=== PATIENT | male | born 1985 | race Two or more races ===

== ENCOUNTER 2018-05-09 19:05 | Emergency (ER) | payer OTHER ==
[~2018-05-09] VITALS: Ht 180.3 cm; Wt 66.0 kg
[2018-05-09] MEDS ORDERED: SODIUM CHLORIDE 0.9% 1,000 ML IV ONE (21:15)
[2018-05-09] MEDS ORDERED: KETOROLAC 30MG/ML VIAL IV ONE (21:15)
[2018-05-09] MEDS ORDERED: METOCLOPRAMIDE HCL 10MG/2ML VIAL IV ONE (21:15)
[2018-05-10 00:15] VITALS: BP 106/56
== END 2018-05-10 00:15 | disposition home or self-care (01) ==
LOC: ER 23:21
DX: R51 Headache (principal); J45.909 Unspecified asthma, uncomplicated; F17.200 Nicotine dependence, unspecified, uncomplicated; Z88.0 Allergy status to penicillin
CPT/HCPCS: 96361; 96374; 96375; 99284; J1885; J2765; J7030; Z7610

== ENCOUNTER 2022-07-26 17:01 | Emergency (ER) | payer MEDICAID, OTHER ==
[~2022-07-26] VITALS: Ht 188 cm; Wt 66.0 kg
[2022-07-26 17:42] VITALS: BP 140/74
[2022-07-26 21:27] LABS: BASOPHILS % 0.2 % (0.0-2.0); HEMATOCRIT. 46.4 % (42.0-52.0); HEMOGLOBIN. 15.5 g/dL (14.0-18.0); LYMPHOCYTES % 52.5 % (20.0-50.0); MEAN CORPUSCULAR HEMOGLOBIN 29.1 pg (28.0-32.0); MEAN PLATELET VOLUME 7.9 fl (7.4-10.4); MONOCYTES % 4.1 % (2.0-8.0); NEUTROPHILS % 38.2 % (40.0-76.0); PLATELET 274 x1000/uL (130-400); RED BLOOD CELL COUNT 5.34 mill/uL (4.7-6.1); RED CELL DISTRIBUTION WIDTH 14.4 % (11.6-14.6)
[2022-07-26 21:35] LABS: CHLORIDE 102 mEq/L (98-107)
[2022-07-26] MEDS ORDERED: METH-653 MT (23:06)
[2022-07-26] MEDS ORDERED: IBUP-2029 MT (23:06)
== END 2022-07-26 23:20 | disposition home or self-care (01) ==
LOC: ER 17:01
DX: R10.11 Right upper quadrant pain (principal); N28.1 Cyst of kidney, acquired; J45.909 Unspecified asthma, uncomplicated; Z88.0 Allergy status to penicillin
CPT/HCPCS: 36415; 71045; 76705; 80053; 85025; 99285

== ENCOUNTER 2023-03-21 13:55 | Emergency (ER) | payer MEDICAID, OTHER ==
[~2023-03-21] VITALS: Ht 182.9 cm; Wt 72.7 kg
[~2023-03-21 13:55] MED LIST: IBUP-2029 MT; METH-653 MT
[2023-03-21 14:07] VITALS: BP 143/79; PULSE 102; RESP 18; TEMP 98.6; O2SAT 99
[2023-03-21] MEDS ORDERED: MAGNESIUM/ALUMINUM HYDROXIDE/SIMETHICONE 30ML UDC PO STA (14:43)
[2023-03-21] MEDS ORDERED: VISCOUS LIDOCAINE 2% 15 ML UDC PO STA (14:43)
[2023-03-21] MEDS ORDERED: FAMOTIDINE 20MG TABLET PO ONE (14:45)
[2023-03-21 15:17] LABS: CLARITY URINE CLEAR (CLEAR); COLOR URINE YELLOW (YELLOW); KETONES URINE TRACE (NEGATIVE); LEUKOCYTE ESTERASE URINE NEGATIVE (NEGATIVE); NITRITE URINE NEGATIVE (NEGATIVE); OCCULT BLOOD URINE NEGATIVE (NEGATIVE); PH URINE 5.5 (4.5-8.0); PROTEIN URINE TRACE (NEGATIVE); SPECIFIC GRAVITY URINE 1.033 (1.005-1.030)
[2023-03-21 15:54] LABS: HEMOGLOBIN. 14.4 g/dL (14.0-18.0); MEAN CORPUSCULAR HEMOGLOBIN 29.1 pg (28.0-32.0); MEAN CORPUSCULAR VOLUME 87.1 fL (80.0-94.0); PLATELET 237 x1000/uL (130-400); RED BLOOD CELL COUNT 4.93 mill/uL (4.7-6.1); RED CELL DISTRIBUTION WIDTH 14.1 % (11.6-14.6)
[2023-03-21 15:58] LABS: CHLORIDE 102 mEq/L (98-107)
[2023-03-21 16:23] LABS: PLATELET ESTIMATE NORMAL
== END 2023-03-21 17:06 | disposition home or self-care (01) ==
LOC: ER 13:55
DX: K57.90 Diverticulosis of intestine, part unspecified, without perforation or abscess without bleeding (principal); J45.909 Unspecified asthma, uncomplicated
CPT/HCPCS: 36415; 74176; 80053; 81003; 85025; 99284

== ENCOUNTER 2023-03-25 23:08 | Emergency (ER) | payer MEDICAID, OTHER ==
[~2023-03-25] VITALS: Ht 180.3 cm; Wt 76.8 kg
[2023-03-26 00:02] VITALS: BP 125/86
[2023-03-26 02:29] LABS: CLARITY URINE CLEAR (CLEAR); COLOR URINE YELLOW (YELLOW); KETONES URINE NEGATIVE (NEGATIVE); LEUKOCYTE ESTERASE URINE NEGATIVE (NEGATIVE); NITRITE URINE NEGATIVE (NEGATIVE); OCCULT BLOOD URINE NEGATIVE (NEGATIVE); PH URINE 5.5 (4.5-8.0); PROTEIN URINE NEGATIVE (NEGATIVE); SPECIFIC GRAVITY URINE 1.025 (1.005-1.030); UROBILINOGEN URINE 0.2 E.U./dL (0.2-1.0)
== END 2023-03-26 02:48 | disposition home or self-care (01) ==
LOC: ER 23:08
DX: A64 Unspecified sexually transmitted disease (principal); J45.909 Unspecified asthma, uncomplicated; Z88.0 Allergy status to penicillin
CPT/HCPCS: 81003; 86695; 86696; 99283